=== PATIENT | female | born 1995 | race Two or more races ===

== ENCOUNTER 2020-11-19 19:05 | Emergency (ER) | payer SELFPAY ==
[~2020-11-19] VITALS: Ht 160 cm; Wt 98.0 kg
[2020-11-19] MEDS ORDERED: MORPHINE SULFATE 4 MG/ML CPJ (NOT FOR IM USE) IV STA (19:49)
[2020-11-19] MEDS ORDERED: ONDANSETRON HCL 4MG/2ML INJ IV STA (19:49)
[2020-11-19] MEDS ORDERED: SODIUM CHLORIDE 0.9% 1,000 ML IV ONE (20:00)
[2020-11-19 20:25] LABS: BASOPHILS % 0.2 % (0.0-2.0); EOSINOPHILS % 0.3 % (0.0-5.0); HEMATOCRIT. 36.5 % (36.0-48.0); HEMOGLOBIN. 11.9 g/dL (12.0-16.0); LYMPHOCYTES % 14.4 % (20.0-50.0); MEAN CORPUSCULAR HEMOGLOBIN 26.2 pg (28.0-32.0); MEAN PLATELET VOLUME 8.1 fl (7.4-10.4); MONOCYTES % 7.8 % (2.0-8.0); NEUTROPHILS % 77.3 % (40.0-76.0); PLATELET 206 x1000/uL (130-400); RED BLOOD CELL COUNT 4.57 mill/uL (4.2-5.4)
[2020-11-19] MEDS ORDERED: MORPHINE SULFATE 2 MG/ML CPJ (NOT FOR IM USE) IV NR (20:30)
[2020-11-19 20:32] LABS: CHLORIDE 106 mEq/L (98-107)
[2020-11-19 20:36] LABS: HCG SCREEN NEGATIVE
[2020-11-19 20:37] LABS: D-DIMER 0.6 mg/L FEU (<0.50); PARTIAL THROMBOPLASTIN TIME 28.3 sec (23.4-31.0); PROTHROMBIN TIME 10.9 sec (9.6-11.0)
[2020-11-20 02:54] VITALS: BP 138/85
[2020-11-20] MEDS ORDERED: IOHEXOL-350 100 ML BOTTLE ONE (06:31)
== END 2020-11-20 02:57 | disposition home or self-care (01) ==
LOC: ER 19:05
DX: R07.89 Other chest pain (principal); R51.9 Headache, unspecified
CPT/HCPCS: 36415; 70450; 71045; 71275; 80053; 81025; 83880; 84484; 84703; 85025; 85379; 85610; 85730; 93005; 96361; 96374; 96375; 99285; J2270; J2405; J7030; Q9967

== ENCOUNTER 2023-12-21 16:50 | Emergency (ER) | payer SELFPAY ==
[~2023-12-21] VITALS: Ht 167.6 cm; Wt 91.0 kg
[2023-12-21 16:52] VITALS: O2SAT 99
[2023-12-21] MEDS: KETOROLAC 30MG/ML VIAL IM ONE (17:57)
[2023-12-21] MEDS: METOCLOPRAMIDE HCL 10MG/2ML VIAL IM ONE (17:58)
[2023-12-21] MEDS: DIPHENHYDRAMINE 50MG/ML VIAL IM ONE (17:58)
[2023-12-21] MEDS: DIPHENHYDRAMINE 25MG CAPSULE PO ONE (17:58)
[2023-12-21] MEDS: METOCLOPRAMIDE HCL 10MG TABLET PO ONE (17:58)
[2023-12-21] MEDS ORDERED: IBUP-2029 MT (18:47)
[2023-12-21 18:57] VITALS: BP 117/74; PULSE 84; RESP 16; TEMP 36.94740; O2SAT 99
== END 2023-12-21 19:46 | disposition home or self-care (01) ==
LOC: ER 16:50
DX: G43.909 Migraine, unspecified, not intractable, without status migrainosus (principal)
CPT/HCPCS: 99283; 81025; 96372; Q0163; J8597; J1885